=== PATIENT | female | born 1995 | race American Indian/Alaskan Native ===

== ENCOUNTER 2016-10-17 02:00 | Outpatient (CLI) | payer MEDICAID ==
[2016-10-17 03:17] VITALS: BP 132/72
== END 2016-10-17 03:27 | disposition home or self-care (01) ==
LOC: TRG 02:00
PROVIDERS: ATTEND Obstetrics & Gynecology
DX: O47.1 False labor at or after 37 completed weeks of gestation (principal); Z3A.39 39 weeks gestation of pregnancy
CPT/HCPCS: 59025

== ENCOUNTER 2016-10-20 21:57 | Outpatient (CLI) | payer MEDICAID ==
[2016-10-20 23:16] VITALS: BP 142/82
[2016-10-20 23:26] LABS: Urine Drugs of Abuse Note Disclamer
[2016-10-20 23:40] LABS: Basophils % (Auto) 0.2 % (0.0-1.8); Eosinophils % (Auto) 0.2 % (0.0-4.3); Hematocrit 30.6 % (30.3-42.9); Hemoglobin 9.8 gm/dl (10.1-14.3); Mean Corpuscular HGB Conc 32 % (30-34); Mean Corpuscular Volume 78 fl (79-97); Platelet Count 152 K/mm3 (140-440); Red Blood Count 3.92 M/mm3 (3.65-5.03); Red Cell Distribution Width 15.8 % (13.2-15.2); White Blood Count 8.1 K/mm3 (4.5-11.0)
[2016-10-20] MEDS ORDERED: VISTARIL PO ONE (23:41)
[2016-10-20 23:42] LABS: Mean Corpuscular Hemoglobin 25 pg (28-32)
[2016-10-20 23:45] LABS: Bilirubin,Urine NEG (Negative); Blood,Urine NEG (Negative); Ketones,Urine NEG (Negative); Leukocyte Esterase,Urine NEG (Negative); Mucus,Urine FEW /HPF; Nitrite,Urine NEG (Negative); Protein,Urine <15 mg/dL mg/dL (Negative); Urobilinogen,Urine < 2.0 mg/dL (<2.0)
[2016-10-21 00:10] LABS: HIV-1 Antigen p24 Non React (Non React); HIVR-1/2 Ab Non React (Non React)
--- NOTE | 2016-10-21 07:57 | Ultrasound Report ---
ULTRASOUND BIOPHYSICAL PROFILE: History: well being Technique: Transabdominal ultrasound with Doppler interrogation. 2 - breathing movements 2 - movements 2 - posture and tone 2 - Qualitative amniotic fluid volume 8 - TOTAL SCORE OF POSSIBLE 8 Heart Rate (bpm) 178
--- NOTE | 2016-10-21 07:58 | Ultrasound Report ---
ULTRASOUND OB LIMITED History: well being Technique: Transabdominal ultrasound with Doppler interrogation. Gestation: Single Position: Cephalic Amniotic Fluid: Normal HENRIQUE = 13.9 cm Placenta: Anterior Placental Grade: 1 Heart Rate: 178 BPM
== END 2016-10-20 23:59 | disposition home or self-care (01) ==
LOC: TRG 21:57
PROVIDERS: ATTEND Obstetrics & Gynecology
DX: O47.1 False labor at or after 37 completed weeks of gestation (principal); Z3A.39 39 weeks gestation of pregnancy
CPT/HCPCS: 36415; 59025; 76815; 76819; 80307; 81001; 85025; 85660; 86592; 86706; 86762; 86803; 87806; Q0177

== ENCOUNTER 2021-03-02 11:22 | Emergency (ER) | payer MEDICAID ==
[2021-03-02 11:34] VITALS: BP 105/71
[2021-03-02] MEDS ORDERED: diphenhydrAMINE 50 MG/ML VIAL IV ONE (13:02)
[2021-03-02] MEDS ORDERED: METOCLOPRAMIDE 10 MG/2 ML INJ IV ONE (13:02)
[2021-03-02] MEDS ORDERED: FAMOTIDINE 20 MG/2 ML INJ IV ONE (13:02)
[2021-03-02] MEDS ORDERED: LACTATED RINGERS 1,000 ML IV ONE ×2 (13:03)
--- NOTE | 2021-03-02 13:04 | Emergency Department Report ---
ED General Adult HPI - General Chief complaint: Nausea/Vomiting/Diarrhea Stated complaint: 2MO VOMITING,BLOOD HEADACHE Time Seen by Provider: 03/02/21 12:30 Source: patient Mode of arrival: Ambulatory Limitations: No Limitations - History of Present Illness Initial comments: 25-year-old -[place] female patient presents with complaints of epigastric pain radiating into her chest and nausea and vomiting x2 days. She states she noticed small streaks of blood in her vomit this morning. She also complains of sinus headache for the past 2 days and nasal congestion. Her headache is unrelieved with Tylenol. No head trauma, vision changes, numbness/tingling/weakness in the limbs, difficulty with speech/ambulation, or worst headache of her life. She rates her pain as a 5/10 in severity. She also denies history of recurrent sinusitis. Patient is not currently following with an [facility]. She denies any diarrhea, melena/hematochezia, urinary symptoms, or vaginal bleeding. No other past medical history per patient. - Related Data Home Medications Medication Instructions Recorded Confirmed Last Taken Vit No.130/Iron/Folic 1 tab PO DAILY 10/22/16 10/22/16 10/20/16 08:00 [ Tablet] Previous Rx's Medication Instructions Recorded Last Taken Type HYDROcodone/APAP 5-325 [[place] 1 each PO Q6HR PRN #10 tablet 10/22/16 Unknown Rx 5/325] Ibuprofen [Motrin 600 MG tab] 600 mg PO Q8H PRN #30 tablet 10/22/16 Unknown Rx Multivitamin with Iron 1 each PO DAILY #30 tablet 10/22/16 Unknown Rx [Multivitamins with Iron] Famotidine [Pepcid] 20 mg PO BID PRN #20 tablet 03/02/21 Unknown Rx Fluticasone [Flonase] 2 spray NS QDAY PRN #1 bottle 03/02/21 Unknown Rx Loratadine 10 mg PO QDAY PRN #10 tablet 03/02/21 Unknown Rx Metoclopramide [Reglan] 10 mg PO TID PRN #30 tab 03/02/21 Unknown Rx diphenhydrAMINE [Benadryl CAP] 25 mg PO TID PRN #30 capsule 03/02/21 Unknown Rx Allergies Allergy/AdvReac Type Severity Reaction Status Date / Time No Known Allergies Allergy Verified 10/20/16 22:04 ED Review of Systems ROS: Stated complaint: 2MO VOMITING,BLOOD HEADACHE Other details as noted in HPI Constitutional: denies: chills, fever, malaise Eyes: denies: eye pain, vision change Respiratory: denies: cough, shortness of breath Cardiovascular: denies: chest pain Gastrointestinal: abdominal pain, nausea, vomiting. denies: diarrhea, constipation, hematemesis, melena, hematochezia Genitourinary: denies: urgency, dysuria, frequency, hematuria, discharge Musculoskeletal: denies: back pain Skin: denies: rash, lesions, change in color Neurological: headache. denies: numbness, paresthesias, confusion, abnormal gait ED Past Medical Hx - Past Medical History Previous Medical History?: Yes Hx Hypertension: No Hx Congestive Heart Failure: No Hx Diabetes: No Hx Deep Vein Thrombosis: No Hx Renal Disease: No Hx Sickle Cell Disease: No Hx Seizures: No Hx Asthma: Yes ("years ago") Hx COPD: No Hx HIV: No - Surgical History Past Surgical History?: No - Social History Smoking Status: Never Smoker - Medications Home Medications: Home Medications Medication Instructions Recorded Confirmed Last Taken Type HYDROcodone/APAP 5-325 [[place] 1 each PO Q6HR PRN #10 tablet 10/22/16 Unknown Rx 5/325] Ibuprofen [Motrin 600 MG tab] 600 mg PO Q8H PRN #30 tablet 10/22/16 Unknown Rx Multivitamin with Iron 1 each PO DAILY #30 tablet 10/22/16 Unknown Rx [Multivitamins with Iron] Vit No.130/Iron/Folic 1 tab PO DAILY 10/22/16 10/22/16 10/20/16 08:00 History [ Tablet] Famotidine [Pepcid] 20 mg PO BID PRN #20 tablet 03/02/21 Unknown Rx Fluticasone [Flonase] 2 spray NS QDAY PRN #1 bottle 03/02/21 Unknown Rx Loratadine 10 mg PO QDAY PRN #10 tablet 03/02/21 Unknown Rx Metoclopramide [Reglan] 10 mg PO TID PRN #30 tab 03/02/21 Unknown Rx diphenhydrAMINE [Benadryl CAP] 25 mg PO TID PRN #30 capsule 03/02/21 Unknown Rx ED Physical Exam - General Limitations: No Limitations General appearance: alert, in no apparent distress - Head Head exam: Present: atraumatic, normocephalic - Eye Eye exam: Present: other (Tenderness to palpation noted to the frontal sinuses without overlying skin changes or swelling). Absent: periorbital swelling, periorbital tenderness - ENT ENT exam: Present: mucous membranes moist - Neck Neck exam: Present: normal inspection - Respiratory Respiratory exam: Present: normal lung sounds bilaterally. Absent: respiratory distress - Cardiovascular Cardiovascular Exam: Present: regular rate, normal rhythm - GI/Abdominal GI/Abdominal exam: Present: soft, tenderness (Minimal epigastric tenderness to palpation noted), normal bowel sounds. Absent: distended, guarding, rebound, rigid - Neurological Exam Neurological exam: Present: alert, oriented X3, normal gait - Psychiatric Psychiatric exam: Present: normal affect, normal mood - Skin Skin exam: Present: warm, dry, intact, normal color. Absent: rash ED Course Vital Signs 03/02/21 11:30 Temperature 98.7 F Pulse Rate 77 Respiratory 16 Rate Blood Pressure 105/71 [Left] O2 Sat by Pulse 99 Oximetry ED Medical Decision Making - Lab Data Result diagrams: 03/02/21 13:11 03/02/21 13:11 Lab Results 03/02/21 03/02/21 03/02/21 Range/Units 13:10 13:11 13:11 WBC 3.0 L (4.5-11.0) K/mm3 RBC 4.69 (3.65-5.03) M/mm3 Hgb 12.5 (10.1-14.3) gm/dl Hct 39.0 (30.3-42.9) % MCV 83 (79-97) fl MCH 27 L (28-32) pg MCHC 32 (30-34) % RDW 15.1 (13.2-15.2) % Plt Count 133 L (140-440) K/mm3 Lymph % (Auto) 19.0 (13.4-35.0) % Hartley % (Auto) 10.8 H (0.0-7.3) % Eos % (Auto) 0.1 (0.0-4.3) % Baso % (Auto) 0.2 (0.0-1.8) % Lymph # (Auto) 0.6 L (1.2-5.4) K/mm3 Hartley # (Auto) 0.3 (0.0-0.8) K/mm3 Eos # (Auto) 0.0 (0.0-0.4) K/mm3 Baso # (Auto) 0.0 (0.0-0.1) K/mm3 Seg Neutrophils % 69.9 (40.0-70.0) % Seg Neutrophils # 2.1 (1.8-7.7) K/mm3 Sodium 134 L (137-145) mmol/L Potassium 4.1 (3.6-5.0) mmol/L Chloride 101.8 (98-107) mmol/L Carbon Dioxide 22 (22-30) mmol/L Anion Gap 14 mmol/L BUN 5 L (7-17) mg/dL Creatinine 0.6 (0.6-1.2) mg/dL Estimated GFR > 60 ml/min BUN/Creatinine Ratio 8 % Glucose 102 H (65-100) mg/dL Calcium 9.2 (8.4-10.2) mg/dL Total Bilirubin 0.20 (0.1-1.2) mg/dL AST 16 (5-40) units/L ALT 12 (7-56) units/L Alkaline Phosphatase 45 (35-129) units/L Total Protein 7.5 (6.3-8.2) g/dL Albumin 3.9 (3.9-5) g/dL Albumin/Globulin Ratio 1.1 % Lipase 23 (13-60) units/L Urine Color Yellow (Yellow) Urine Turbidity Cloudy (Clear) Urine pH 7.0 (5.0-7.0) Ur Specific Geff 1.020 (1.003-1.030) Urine Protein 30 mg/dl (Negative) mg/dL Urine Glucose (UA) Neg (Negative) mg/dL Urine Ketones Neg (Negative) mg/dL Urine Blood Neg (Negative) Urine Nitrite Neg (Negative) Urine Bilirubin Neg (Negative) Urine Urobilinogen 4.0 (<2.0) mg/dL Ur Leukocyte Esterase Neg (Negative) Urine WBC (Auto) 4.0 (0.0-6.0) /HPF Urine RBC (Auto) 1.0 (0.0-6.0) /HPF U Epithel Cells (Auto) 100.0 H (0-13.0) /HPF Urine Bacteria (Auto) 1+ (Negative) /HPF Urine Mucus 2+ /HPF Urine Yeast (Budding) 1+ /HPF - Medical Decision Making 25-year-old -[place] female patient presents with complaints of epigastric pain radiating into her chest and nausea and vomiting x2 days. She states she noticed small streaks of blood in her vomit this morning. She also complains of sinus headache for the past 2 days and nasal congestion. Her headache is unrelieved with Tylenol. No head trauma, vision changes, numbness/t ingling/weakness in the limbs, difficulty with speech/ambulation, or worst headache of her life. She rates her pain as a 5/10 in severity. She also denies history of recurrent sinusitis. Patient is not currently following with an [facility]. She denies any diarrhea, melena/hematochezia, urinary symptoms, or vaginal bleeding. No other past medical history per patient. No significant abnormalities noted on CBC, CMP, or UA. Patient given Pepcid IV, Reglan, and Benadryl along with 2 L of LR. She states her symptoms have resolved and she is feeling well. She is now tolerating fluids p.o. Patient states she does still feel congested. We will treat for viral sinusitis given duration of 2 days without fever or other signs of bacterial infection. Recommend patient follows up with PCP in 3 to 5 days. She was given a referral to an [facility] informed to follow-up within 1 to 2 weeks. Her vitals are within normal limits, she is well-appearing, she is stable for discharge home. Strict return precautions were discussed in detail with patient who verbalized understanding. Critical care attestation.: If time is entered above; I have spent that time in minutes in the direct care of this critically ill patient, excluding procedure time. ED Disposition Clinical Impression: Nausea/vomiting in , Acute viral sinusitis Disposition: HOME / SELF CARE / HOMELESS Is pt being admited?: No Condition: Stable Instructions: Hyperemesis Gravidarum, Gastritis, Adult, Sinusitis, Adult, [id number] Prescriptions: diphenhydrAMINE [Benadryl CAP] 25 mg PO TID PRN #30 capsule PRN Reason: Nausea Fluticasone [Flonase] 2 spray NS QDAY PRN #1 bottle PRN Reason: Nasal Congestion Loratadine 10 mg PO QDAY PRN #10 tablet PRN Reason: Nasal Congestion Famotidine [Pepcid] 20 mg PO BID PRN #20 tablet PRN Reason: acid reflux Metoclopramide [Reglan] 10 mg PO TID PRN #30 tab PRN Reason: Nausea Referrals: [facility] [Provider Group] - 3-5 Days [facility] [Provider Group] - 3-5 Days Forms: Work/School Release Form(ED)
[2021-03-02 13:23] LABS: Basophils % (Auto) 0.2 % (0.0-1.8); Eosinophils % (Auto) 0.1 % (0.0-4.3); Hemoglobin 12.5 gm/dl (10.1-14.3); Lymphocytes # (Auto) 0.6 K/mm3 (1.2-5.4); Mean Corpuscular HGB Conc 32 % (30-34); Mean Corpuscular Volume 83 fl (79-97); Monocytes # (Auto) 0.3 K/mm3 (0.0-0.8); Monocytes % (Auto) 10.8 % (0.0-7.3); Platelet Count 133 K/mm3 (140-440); Red Blood Count 4.69 M/mm3 (3.65-5.03); Red Cell Distribution Width 15.1 % (13.2-15.2)
[2021-03-02 13:41] LABS: Bacteria,Urine 1+ /HPF (Negative); Bilirubin,Urine NEG (Negative); Blood,Urine NEG (Negative); Color,Urine Yellow (Yellow); Mucus,Urine 2+ /HPF
[2021-03-02 13:46] LABS: Alanine Aminotransferase 12 units/L (7-56); Albumin 3.9 g/dL (3.9-5); BUN/Creatinine Ratio 8; Blood Urea Nitrogen 5 mg/dL (7-17); Calcium 9.2 mg/dL (8.4-10.2); Hemolysis Index 6
== END 2021-03-02 16:01 | disposition home or self-care (01) ==
LOC: ED 11:22
DX: O21.8 Other vomiting complicating pregnancy (principal); O99.519 Diseases of the respiratory system complicating pregnancy, unspecified trimester; J01.90 Acute sinusitis, unspecified; J45.909 Unspecified asthma, uncomplicated; Z3A.00 Weeks of gestation of pregnancy not specified
CPT/HCPCS: 36415; 80053; 81001; 83690; 85025; 96361; 96374; 96375; 99283; J1200; J2765; J7120